=== PATIENT | female | born 1980 | race Caucasian/White ===

== ENCOUNTER 2017-11-25 09:32 | Emergency (ER) | payer MEDICAID ==
[~2017-11-25] VITALS: Ht 157.5 cm; Wt 73.9 kg
[2017-11-25 10:03] VITALS: BP 107/75
--- NOTE | 2017-11-25 10:09 | NUR ---
PT AMBULATED TO BED 12.
--- NOTE | 2017-11-25 10:14 | NUR ---
37F BIB SELF C/O URINARY BURNING, FREQUENCY AND RETENTION X 1 MONTH; PT STATES WENT TO CLINIC ON 11/18/17, FINISHED ANTBIOTIC CEPHALEXIN PRESCRIBED FOR UTI, BUT CONTINUES TO HAVE UTI SYMPTOMS; PT C/O VAGINAL BURNING, NON-RADIATING, 07/12 AT THIS TIME; PT STATES " I'M ON MY PERIOD, BUT I HAVEN'T HAD BLOOD IN MY URINE"; PT C/O NAUSEA, BUT STATES NO V/D AT THIS TIME; ABDOMEN SOFT,NON-TENDER, ACTIVE BOWEL SOUNDS X 4 QUADRANTS; PT AA&OX4, BL LUNG SOUNDS CLEAR, RR EVEN/UNLABORED, SKIN IS WARM/DRY/INTACT, WITH EVEN AND STEADY GAIT; PT RESTING IN BED WITH HOB ELEVATED AND IN LOWEST POSITION; POSITIONED FOR COMFORT; ER MD MADE AWARE OF STATUS. WILL CONTINUE TO MONITOR.
[2017-11-25 11:54] VITALS: BP 108/63
--- NOTE | 2017-11-25 11:54 | NUR ---
Patient discharged with v/s stable. Written and verbal after care instructions given and explained. Patient alert, oriented and verbalized understanding of instructions. Ambulatory with steady gait. All questions addressed prior to discharge. ID band removed. Patient advised to follow up with PMD. Rx of PRYRIUM 200MG TAB, MACROBID CAPSULE 100MG & IBUPROFEN 100MG TAB given. Patient educated on indication of medication including possible reaction and side effects. Opportunity to ask questions provided and answered.
== END 2017-11-25 11:54 | disposition home or self-care (01) ==
LOC: MED 09:32
DX: N39.0 Urinary tract infection, site not specified (principal)
CPT/HCPCS: 99283

== ENCOUNTER 2018-07-20 13:31 | Emergency (ER) | payer MEDICAID ==
[~2018-07-20] VITALS: Ht 160 cm; Wt 72.6 kg
[2018-07-20 13:40] VITALS: BP 128/77
--- NOTE | 2018-07-20 13:47 | NUR ---
burning pain upon voiding x 3 days denies hematuria . DENIES N/V/D; SKIN IS PINK/WARM/DRY; AAOX4 WITH EVEN AND STEADY GAIT; LUNGS CLEAR BL; HR EVEN AND REGULAR; PT DENIES ANY FEVER, CP, SOB, OR COUGH AT THIS TIME; PATIENT STATES PAIN OF 8/10 AT THIS TIME; VSS; PATIENT POSITIONED FOR COMFORT; HOB ELEVATED; BEDRAILS UP X2; BED DOWN. ER MD MADE AWARE OF PT STATUS.
[2018-07-20 14:11] VITALS: BP 128/77
--- NOTE | 2018-07-20 14:12 | NUR ---
Patient discharged with v/s stable. Written and verbal after care instructions given and explained. Patient alert, oriented and verbalized understanding of instructions. Ambulatory with steady gait. All questions addressed prior to discharge. ID band removed. Patient advised to follow up with PMD. Rx of CEPHALEXIN AND PYRIDIUM given. Patient educated on indication of medication including possible reaction and side effects. Opportunity to ask questions provided and answered.
== END 2018-07-20 14:12 | disposition home or self-care (01) ==
LOC: MED 13:31
DX: N39.0 Urinary tract infection, site not specified (principal)
CPT/HCPCS: 81002; 81025; 99283

== ENCOUNTER 2019-08-18 23:00 | Inpatient (IN) | payer MEDICAID ==
[~2019-08-18] VITALS: Ht 157.5 cm; Wt 89.4 kg
[2019-08-19] MEDS ORDERED: METHYLERGONOVINE 0.2 MG/ML AMP IM PRN (00:25)
[2019-08-19] MEDS ORDERED: LACTATED RINGERS 1,000 ML IV SCH (00:25)
[2019-08-19] MEDS ORDERED: CARBOPROST 250 MCG/ML AMP IM PRN (00:25)
[2019-08-19] MEDS ORDERED: PROMETHAZINE 25 MG/ML VIAL IVP PRN (00:25)
[2019-08-19 00:48] LABS: APPEARANCE,URINE CLEAR (CLEAR); BILIRUBIN,URINE NEGATIVE (NEGATIVE); BLOOD, URINE TRACE-I (NEGATIVE); COLOR,URINE YELLOW (YELLOW); LEUKOCYTE ESTERASE ,URINE NEGATIVE (NEGATIVE); NITRITE, URINE NEGATIVE (NEGATIVE); UGLUCOSE NEGATIVE (NEGATIVE)
[2019-08-19 00:49] LABS: BASOPHILS % (AUTO) 0.3 % (0.0-2.0); EOSINOPHILS # (AUTO) 0.1 K/uL (0-0.4); EOSINOPHILS % (AUTO) 0.7 % (0.0-4.0); HEMATOCRIT 34.3 % (36-48); HEMOGLOBIN 11.5 g/dL (12.0-16.0); LYMPHOCYTES # (AUTO) 3.1 K/uL (2.5-16.5); MEAN CORPUSCULAR HEMOGLOBIN 31 pg (27-31); MEAN CORPUSCULAR HGB CONC 34 g/dL (33-37); MEAN CORPUSCULAR VOLUME 90.9 fL (80-94); MONOCYTES # (AUTO) 0.6 K/uL (0.8-1.0); MONOCYTES % (AUTO) 6.3 % (1.7-9.3); NEUTROPHILS # (AUTO) 5.9 K/uL (1.8-7.7); NEUTROPHILS % (AUTO) 60.7 % (42.2-75.2); PLATELET COUNT (AUTO) 306 K/uL (140-450); RED BLOOD CELL COUNT(AUTO) 3.77 MIL/uL (4.20-5.40); RED CELL DISTRIBUTION WIDTH 14.5 % (11.6-13.7); WHITE BLOOD COUNT (AUTO) 9.7 K/uL (4.8-10.8)
[2019-08-19] MEDS ORDERED: NALBUPHINE 10 MG/ML AMP IVP PRN (00:55)
[2019-08-19 00:57] LABS: ANION GAP 19.6 (8-16); CARBON DIOXIDE 19.1 mmol/L (21-32); CREATININE 0.6 mg/dL (0.6-1.3); POTASSIUM 3.7 mmol/L (3.5-5.1)
[2019-08-19] MEDS ORDERED: MISOPROSTOL 200 MCG TAB VG SCH ×2 (01:00→18:00)
[2019-08-19 01:01] LABS: RBC,URINE 0-5 /HPF (0-5); WBC,URINE 0-5 /HPF (0-5)
[2019-08-19 01:03] LABS: ALBUMIN 2.9 g/dL (3.4-5.0); TOTAL BILIRUBIN 0.5 mg/dL (0.0-1.0)
[2019-08-19] MEDS ORDERED: MISOPROSTOL 25 MCG TAB ONE ×3 (01:27→05:41)
[2019-08-19] MEDS: MISOPROSTOL 25 MCG TAB VG SCH ×2 (01:28→05:42)
[2019-08-19 02:39] VITALS: BP 123/73
[2019-08-19] MEDS ORDERED: NALBUPHINE 10 MG/ML AMP ONE (08:19)
[2019-08-19] MEDS ORDERED: PROMETHAZINE 25 MG/ML VIAL ONE (08:19)
--- NOTE | 2019-08-19 08:31 | NUR ---
PATIENT HAS BEEN SCREENED AND CATEGORIZED LOW NUTRITION RISK. PATIENT WILL BE SEEN WITHIN 7 DAYS OF ADMISSION. 08/25/[address]
[2019-08-19] MEDS ORDERED: OXYTOCIN 20 UNITS/LR PREMIX 1,000 ML IV ONE (08:44)
[2019-08-19] MEDS ORDERED: TEMAZEPAM 15 MG CAP PO PRN (10:10)
[2019-08-19] MEDS ORDERED: MEASLES, MUMPS, AND RUBELLA 1 VIAL SQVAC PRN (10:10)
[2019-08-19] MEDS ORDERED: BENZOCAINE/MENTHOL 20%-0.5% 60 GM CAN TP PRN (10:10)
[2019-08-19] MEDS: IBUPROFEN 800 MG TAB PO PRN (17:33)
[2019-08-19] MEDS ORDERED: DOCUSATE SOD/SENNA 50/8.6 MG 1 TAB PO SCH (21:00)
[2019-08-20] MEDS: IBUPROFEN 800 MG TAB PO PRN ×3 (02:14→20:57)
[2019-08-20 07:31] LABS: HEMATOCRIT 35.2 % (36-48); HEMOGLOBIN 11.6 g/dL (12.0-16.0)
[2019-08-21] MEDS: IBUPROFEN 800 MG TAB PO PRN (09:21)
== END 2019-08-21 12:00 | disposition home or self-care (01) | DRG 560 ==
LOC: MLD 23:00 → MFCC 08-19 12:30
PROVIDERS: ADMIT Obstetrics & Gynecology; ATTEND Obstetrics & Gynecology
PROC: 10E0XZZ Delivery of Products of Conception, External Approach (ICD-10-PCS; principal; 2019-08-19)
PROC: 3E0234Z Introduction of Serum, Toxoid and Vaccine into Muscle, Percutaneous Approach (ICD-10-PCS; 2019-08-19)
PROC: 3E0134Z Introduction of Serum, Toxoid and Vaccine into Subcutaneous Tissue, Percutaneous Approach (ICD-10-PCS; 2019-08-19)
DX: O80 Encounter for full-term uncomplicated delivery (principal); Z23 Encounter for immunization; Z37.0 Single live birth; Z3A.39 39 weeks gestation of pregnancy
CPT/HCPCS: 36415; 59409; 80053; 81000; 81001; 85018; 85025; 86592; 86886; 86900; 86901; 90715; J2300; J2550; J2590; J7120

== ENCOUNTER 2024-02-10 22:14 | Inpatient (IN) | payer MEDICAID, OTHER ==
[~2024-02-10] VITALS: Ht 157.5 cm; Wt 95.3 kg
[2024-02-10] MEDS ORDERED: LACTATED RINGERS 500 ML IV ONE (22:40)
[2024-02-10] MEDS ORDERED: CARBOPROST 250 MCG/ML AMP IM PRN (22:40)
[2024-02-10] MEDS ORDERED: METHYLERGONOVINE 0.2 MG/ML AMP IM PRN (22:40)
[2024-02-10] MEDS ORDERED: MORPHINE SULFATE 10 MG/ML VIAL IVP PRN (22:45)
[2024-02-10] MEDS ORDERED: PRETAB PO (22:45)
[2024-02-10 23:00] LABS: APPEARANCE,URINE CLEAR (CLEAR); BILIRUBIN,URINE NEGATIVE (NEGATIVE); BLOOD, URINE 1+ (NEGATIVE); COLOR,URINE YELLOW (YELLOW); LEUKOCYTE ESTERASE ,URINE NEGATIVE (NEGATIVE); NITRITE, URINE NEGATIVE (NEGATIVE); PROTEIN,URINE TRACE (NEGATIVE); UGLUCOSE NEGATIVE (NEGATIVE); UROBILINOGEN,URINE 0.2 EU/dL (0.2 - 1)
[2024-02-10 23:00] LABS: BASOPHILS % (AUTO) 0.5 % (0.0-2.0); EOSINOPHILS # (AUTO) 0.1 K/uL (0-0.4); EOSINOPHILS % (AUTO) 0.8 % (0.0-4.0); HEMATOCRIT 31.6 % (36-48); HEMOGLOBIN 10.9 g/dL (12.0-16.0); LYMPHOCYTES # (AUTO) 3.1 K/uL (2.5-16.5); LYMPHOCYTES % (AUTO) 29.6 % (20.5-51.1); MEAN CORPUSCULAR HEMOGLOBIN 30 pg (27-31); MEAN CORPUSCULAR HGB CONC 35 g/dL (33-37); MEAN CORPUSCULAR VOLUME 86.3 fL (80-94); MONOCYTES # (AUTO) 0.6 K/uL (0.8-1.0); MONOCYTES % (AUTO) 5.7 % (1.7-9.3); NEUTROPHILS # (AUTO) 6.6 K/uL (1.8-7.7); NEUTROPHILS % (AUTO) 63.4 % (42.2-75.2); PLATELET COUNT (AUTO) 312 K/uL (140-450); RED BLOOD CELL COUNT(AUTO) 3.66 MIL/uL (4.20-5.40); WHITE BLOOD COUNT (AUTO) 10.4 K/uL (4.8-10.8)
[2024-02-10 23:06] LABS: BACTERIA,URINE >30 (MANY) /HPF (None Seen); MUCUS,URINE 1+ /LPF (None Seen); SQUAMOUS EPITHELIAL CELL,UR 0-3 (FEW) /LPF (0-3 (FEW)); WBC,URINE 0-5 /HPF (0-5)
[2024-02-10 23:28] LABS: ALBUMIN 2.8 g/dL (3.4-5.0); ANION GAP 19.4 (8-16); CALCIUM 8.7 mg/dL (8.5-10.1); CARBON DIOXIDE 19.3 mmol/L (21-32); CREATININE 0.9 mg/dL (0.6-1.3); POTASSIUM 3.7 mmol/L (3.5-5.1); TOTAL BILIRUBIN 0.5 mg/dL (0.0-1.0); TOTAL PROTEIN, SERUM 7.1 g/dL (6.4-8.2)
[2024-02-10] MEDS: OXYTOCIN/0.9 % SODIUM CHLORIDE 500 ML IV SCH (23:40)
[2024-02-10] MEDS: LACTATED RINGERS 1,000 ML IV SCH (23:41)
[2024-02-11] MEDS: ONDANSETRON 4 MG/2 ML VIAL IVP PRN (09:19)
[2024-02-11] MEDS ORDERED: MORPHINE SULFATE 4 MG/ML SYR IVP PRN (09:20)
[2024-02-11] MEDS: MORPHINE SULFATE 4 MG/ML SYR ONE (09:21)
[2024-02-11] MEDS ORDERED: METHYLERGONOVINE 0.2 MG TAB PO PRN (10:35)
[2024-02-11] MEDS ORDERED: BENZOCAINE/MENTHOL 20%-0.5% 60 GM CAN TP PRN (10:35)
[2024-02-11] MEDS ORDERED: METHYLERGONOVINE 0.2 MG/ML AMP IM PRN (10:35)
[2024-02-11] MEDS: IBUPROFEN 800 MG TAB PO PRN (16:06)
[2024-02-12 08:08] LABS: HEMATOCRIT 30.9 % (36-48); HEMOGLOBIN 10.6 g/dL (12.0-16.0)
[2024-02-12] MEDS: DOCUSATE SOD/SENNA 50/8.6 MG 1 TAB PO PRN (08:49)
== END 2024-02-12 17:20 | disposition home or self-care (01) | DRG 560 ==
LOC: MLD 22:14 → MFCC 02-11 11:52
PROVIDERS: ADMIT Obstetrics & Gynecology; ATTEND Obstetrics & Gynecology
PROC: 10E0XZZ Delivery of Products of Conception, External Approach (ICD-10-PCS; principal; 2024-02-11)
PROC: 10907ZC Drainage of Amniotic Fluid, Therapeutic from Products of Conception, Via Natural or Artificial Opening (ICD-10-PCS; 2024-02-11)
PROC: 3E0234Z Introduction of Serum, Toxoid and Vaccine into Muscle, Percutaneous Approach (ICD-10-PCS; 2024-02-11)
DX: O69.81X0 Labor and delivery complicated by cord around neck, without compression, not applicable or unspecified (principal); Z37.0 Single live birth; Z3A.39 39 weeks gestation of pregnancy
CPT/HCPCS: 36415; 59409; 80053; 81001; 85018; 85025; 86592; 86886; 86900; 86901; 87086; 90715; J2210; J2270; J2405; J2590